=== PATIENT | female | born 1945 | race Caucasian/White ===

== ENCOUNTER 2019-07-01 06:55 | Inpatient (IN) | payer OTHER ==
[~2019-07-01 06:55] MED LIST: CEFAZOLIN 2 GM in DEXTROSE 5%-WATER - 50 ML IVPB ONE; CELECOXIB 200 MG CAPSULE PO ONE; PANTOPRAZOLE 40 MG TABLET (FP) PO ONE; TRANEXAMIC ACID 1000 MG/10 ML VIAL IVPUSH ONE; oxyCODONE HCL 10 MG SUSTAINED ACTING TABLET PO ONE
[2019-07-01 07:53] VITALS: BMI 30.4
[2019-07-01] MEDS ORDERED: MIDAZOLAM HCL 2 MG/2 ML SINGLE DOSE VIAL ONE (08:02)
[2019-07-01] MEDS ORDERED: BUPIVACAINE LIPOSOME/PF (EXPAREL) 266 MG/20 ML VIAL ONE (08:02)
[2019-07-01] MEDS ORDERED: SODIUM CHLORIDE 0.9% P/F 10 ML VIAL IJ ONE ×2 (08:02→08:36)
--- NOTE | 2019-07-01 08:14 | HP ---
Admitting History and Physical - Admission Chief Complaint: right knee osteoarthritis x years History of Present Illness: 74 year old female presents in regard to their right knee. Long-standing history of right knee osteoarthritis. Patient complains of pain, limited range of motion, difficulty ambulating, and difficulty with activities of daily living. Patient has failed conservative treatment options including PO medications, activity modification, injections, and exercise programs. At this point, patient like to proceed with surgical intervention, right total knee arthroplasty MAKOplasty. History Source: Patient - Past Medical History Cardiovascular: Yes: HTN ...: No ENT: Yes: Other (Hay fever) - Past Surgical History Additional Past Surgical History: See written history & physical - Advance Directives Advance Directives: Yes: Health Care Proxy - Smoking History Smoking history: Never smoked Have you smoked in the past 12 months: No - Alcohol/Substance Use Hx Alcohol Use: No (RARE) Home Medications - Allergies Allergies/Adverse Reactions: Allergies Allergy/AdvReac Type Severity Reaction Status Date / Time No Known Allergies Allergy Verified 07/01/19 07:50 - Home Medications Home Medications: Ambulatory Orders Aspirin [ASA -] 81 mg PO DAILY 06/17/19 Calcium Carb/Vitamin D3/Vit K1 [Calcium + D Soft Chewable Tab] 1 each PO DAILY 06/17/19 Lisinopril [Prinivil] 20 mg PO DAILY 06/17/19 Loratadine 10 mg PO DAILY PRN 06/17/19 [place]-3 Fatty Acids/Fish Oil [Fish Oil 1,000 mg Capsule] 1 each PO DAILY Review of Systems - Review of Systems Musculoskeletal: reports: Crepitus (right knee), Decreased ROM (right knee), Joint Pain (right knee), Joint Swelling (right knee) Physical Examination Vital Signs: Vital Signs Temperature 98.3 F 07/01/19 07:51 Pulse Rate 68 07/01/19 07:51 Respiratory Rate 16 07/01/19 07:51 Blood Pressure 121/79 07/01/19 07:51 O2 Sat by Pulse Oximetry (%) 96 07/01/19 08:01 Constitutional: Yes: Well Nourished, No Distress Eyes: Yes: Conjunctiva Clear HENT: Yes: Atraumatic Neck: Yes: Supple Cardiovascular: Yes: Regular Rate and Rhythm Respiratory: Yes: Regular Gastrointestinal: Yes: Soft ...Rectal Exam: Yes: Deferred Musculoskeletal: Yes: Joint Stiffness (right knee), Joint Swelling (right knee) Assessment/Plan 74 year old female presents in regard to their right knee. Long-standing history of right knee osteoarthritis. Patient complains of pain, limited range of motion, difficulty ambulating, and difficulty with activities of daily living. Patient has failed conservative treatment options including PO medications, activity modification, injections, and exercise programs. At this point, patient like to proceed with surgical intervention, right total knee arthroplasty MAKOplasty. Pros, cons, risks, benefits, and alternatives of a right total knee arthroplasty MAKOplasty were discussed with the patient at length. Patient confirms their understanding and consents to proceed with a right total knee arthroplasty MAKOplasty.
[2019-07-01] MEDS ORDERED: ceFAZolin SODIUM 1 GM VIAL ONE ×2 (08:16→08:36)
[2019-07-01] MEDS ORDERED: VANCOMYCIN 1,000 MG VIAL (RESTRICTED TO ID ONLY) ONE (08:16)
[2019-07-01] MEDS ORDERED: SUCCINYLCHOLINE CHLORIDE 200 MG/10 ML SYRINGE ONE (08:35)
[2019-07-01] MEDS ORDERED: BUPIVACAINE HCL/PF 0.5% (5MG/ML) 10 ML VIAL ONE (08:35)
[2019-07-01] MEDS ORDERED: PROPOFOL 20 ML ONE (08:35)
[2019-07-01] MEDS ORDERED: ONDANSETRON 4 MG/2 ML VIAL ONE ×2 (08:36→12:32)
[2019-07-01] MEDS ORDERED: PHENYLEPHRINE HCL 10 MG/1 ML SINGLE DOSE VIAL ONE (09:32)
[2019-07-01] MEDS ORDERED: ePHEDrine SULFATE 50 MG/1 ML AMPULE ONE (09:43)
[2019-07-01] MEDS ORDERED: GLYCOPYRROLATE 0.2 MG/1 ML VIAL ONE (10:44)
[2019-07-01] MEDS ORDERED: ESMOLOL HCL 100,000 MCG/10 ML VIAL ONE (10:52)
[2019-07-01] MEDS ORDERED: ACETAMINOPHEN INJECTION 100 ML IVPB ONE (12:31)
[2019-07-01] MEDS ORDERED: KETOROLAC TROMETHAMINE 30 MG/1 ML VIAL ONE (12:32)
[2019-07-01] MEDS ORDERED: traMADol HCL 50 MG TABLET ONE (12:32)
--- NOTE | 2019-07-01 12:56 | OP ---
Operative Note - Note: Operative Date: 07/01/19 Pre-Operative Diagnosis: Right knee OA Operation: Right BHARATI TKA Post-Operative Diagnosis: Same as Pre-op Surgeon: Olegario Claire Registered Representative: Morelia Gould Anesthesia: Spinal Estimated Blood Loss (mls): 250
[2019-07-01] MEDS ORDERED: MAG HYDROX/AL HYDROX/SIMETH 30 ML UNIT-DOSE CUP PO PRN (12:58)
[2019-07-01] MEDS ORDERED: MAGNESIUM HYDROX 2400MG/30ML ORAL SUSPENSION 30 ML CUP PO PRN (12:58)
[2019-07-01] MEDS ORDERED: ONDANSETRON 4 MG/2 ML VIAL IVPUSH PRN ×2 (12:58→13:35)
[2019-07-01] MEDS ORDERED: LACTATED RINGERS SOLUTION 1,000 ML IV SCH (13:00)
[2019-07-01] MEDS ORDERED: KETOROLAC TROMETHAMINE 30 MG/1 ML VIAL IVPUSH SCH (13:00)
[2019-07-01] MEDS ORDERED: ACETAMINOPHEN 1000 MG/100 ML VIAL (NON FORMULARY) IVPB ONE (13:00)
[2019-07-01] MEDS: traMADol HCL 50 MG TABLET PO SCH ×2 (13:18→18:03)
[2019-07-01] MEDS ORDERED: traMADol HCL 50 MG TABLET PO PRN (13:35)
[2019-07-01] MEDS ORDERED: PROMETHAZINE HCL 25 MG/1 ML VIAL IVPUSH PRN (13:35)
[2019-07-01] MEDS ORDERED: oxyCODONE HCL 5 MG TABLET PO PRN ×2 (13:35)
--- NOTE | 2019-07-01 13:51 | SPEC ---
DATE OF OPERATION: 07/01/2019 PREOPERATIVE DIAGNOSIS: Right knee osteoarthritis. POSTOPERATIVE DIAGNOSIS: Right knee osteoarthritis. PROCEDURE: Right total knee replacement. ATTENDING: Mackenzie Monteiro MD ELECTRICAL WIRER: JEWELS Eddy ANESTHESIA: Spinal plus sedation. ESTIMATED BLOOD LOSS: 250 mL COMPLICATIONS: None. DISPOSITION: The patient was transferred to the PACU in stable condition. IMPLANTS USED: Rolette Triathlon size 5 femoral component; Rolette Triathlon size 4 tibial component; a 13-mm, total-stabilized polyethylene component; a 32-mm patellar component. INDICATIONS: This is a 74-year-old female who presented to the office with severe right knee pain and notable valgus deformity. She was seen and examined by Dr. Monteiro and diagnosed with severe valgus osteoarthritis. Patient was initially treated nonoperatively with injections, medications, and physical therapy, but continued to have severe pain and ambulatory dysfunction. She was therefore indicated for a right total knee replacement with MAKOplasty robotic navigation. The risks, benefits and alternatives of the procedure were explained to the patient in great detail and she elected to proceed with surgery. DESCRIPTION OF PROCEDURE: On the day of surgery, the patient was taken to the operating room and placed on the OR table. Spinal anesthesia was administered by the anesthesiologist. The patient was then positioned supine on the table and all bony prominences were padded. The knee was then prepped and draped in the usual sterile fashion and intravenous antibiotics were given for infection prophylaxis. A surgical time-out was then performed with the team, and the patients identity, procedure, side, availability of implants, and the administration of antibiotics was confirmed. With the knee flexed, a midline incision was made and carried down through the subcutaneous fat to the underlying retinaculum. A medial parapatellar arthrotomy was performed. This was followed by a subperiosteal dissection of the tissue off the proximal, medial tibia. A portion of fat pad was removed from under the patellar tendon, and a small portion of fat was excised off the distal supracondylar femur. Electrocautery and an [employer] bipolar sealing device were used to achieve hemostasis. The knee was then flexed further and the anterior horn of the lateral meniscus was released from the midline. Next, the anterior and posterior cruciate ligaments were transected. Grade 4 changes were noted diffusely throughout the knee. Femoral and tibial checkpoints were then placed in the appropriate location using a mallet. Two parallel bicortical self-drilling pins were placed in the tibial diaphysis after making stab incisions and bluntly dissecting down to bone. Two pins were then placed in the distal supracondylar femur. The [employer] navigation arrays were then attached to both the femoral and tibial pins and the lower extremity was then registered to the robotic navigation device using various joint movements, as well as inputting several dozen reference points. The knee was then taken through a full range of motion with a corrective force applied. Alignment in varus/valgus as well as flexion/extension and soft tissue balance was measured in various positions. The navigation device showed a numerical and graphic representation of the soft tissue balance. The components were repositioned virtually using the software until optimal soft tissue balance was achieved on screen. Once this was accomplished, the final plan was saved and sent to the robot. Self-retaining retractors were then placed at the joint line for exposure and protection of the collateral ligaments. The robot was brought into the sterile field and registered with the navigation device. The robotic arm with attached oscillating saw blade was then used to perform femoral and tibial bone cuts as per the saved software plan. The femoral box cut was made using the appropriately-sized manual cutting guide. The knee was then irrigated. Trial components were placed and the knee was taken through a full range of motion to assess soft tissue balance and alignment. The range of motion was found to be excellent and the soft tissue balance was optimal and according to plan. The knee was then put into extension and the patella everted. The synovium around the patella was circumscribed with electrocautery. A caliper was used to measure the patellar thickness and a saw was then used to resect the patella at the chondro-osseous junction. The cut surface was then sized and drilled for the appropriate patellar button, with care taken to medialize it. A trial patella was then placed and the knee was again taken through a full range of motion. The knee was found to have both good balance and good patellar tracking. All of the components were removed except the tibial base plate. The appropriate instrumentation was used to drill and punch the proximal tibia for the keel of the final component. All bony surfaces were then cleaned with pulsatile lavage and dried. Bone cement was then prepared on the back table, and final components were cemented in place in the usual fashion. Extruded cement was removed. The polyethylene trial was placed, the knee was put into extension, and axial pressure was applied for compression while the cement hardened. The patellar button was similarly cemented into place. Once the cement had hardened, the knee was taken through a full range of motion to assess stability, balance, and patellar tracking. This was found to be optimal and the trial polyethylene was exchanged for the appropriately-sized real implant. The wound was then thoroughly irrigated with normal saline. A 3-minute dilute Betadine lavage was performed. The knee was again irrigated using a pulsatile lavage device. A periarticular injection was used to locally infiltrate the capsular tissues surrounding the implant and prosthesis. Then, No. 1 Polysorb and 0 V-Loc 180 barbed sutures were used to close the arthrotomy. Then, No. 1 Polysorb and 2-0 V-Loc 90 sutures were used in the subcutaneous tissues. Then, 4-0 undyed Vicryl and Dermabond skin adhesive was used to close the stab incisions made for the navigation pins. The skin was closed using both 3-0 V-Loc 90 suture in a running subcuticular fashion and Dermabond skin adhesive. Once this was completed, a sterile Aquacel dressing and compressive [place] wrap was applied. The patient was then awakened and taken to the PACU in stable condition. MACKENZIE MONTEIRO M.D. [id number]
[2019-07-01] MEDS: KETOROLAC TROMETHAMINE 15 MG/ML VIAL IVPUSH SCH ×2 (16:07→18:13)
[2019-07-01] MEDS: ACETAMINOPHEN 325 MG TABLET (FP) PO SCH (17:53)
[2019-07-01] MEDS: CEFAZOLIN 2 GM/D5W 2 GM/50 ML ML IVPB SCH (18:03)
[2019-07-01] MEDS ORDERED: DEXAMETHASONE SOD PHOSPHATE 10 MG/1 ML VIAL IVPB ONE (20:00)
[2019-07-01] MEDS: CELECOXIB 200 MG CAPSULE PO SCH (21:32)
[2019-07-01] MEDS: ASCORBIC ACID 500 MG TABLET (FP) PO SCH (21:32)
[2019-07-01] MEDS: GABAPENTIN 300 MG CAPSULE (FP) PO SCH (21:32)
[2019-07-01] MEDS: SENNOSIDES/DOCUSATE COMBO (SENNA PLUS) TABLET (UD) PO SCH (21:32)
[2019-07-02] MEDS: ACETAMINOPHEN 325 MG TABLET (FP) PO SCH ×4 (00:47→18:30)
[2019-07-02] MEDS: traMADol HCL 50 MG TABLET PO SCH ×4 (00:47→17:00)
[2019-07-02] MEDS: KETOROLAC TROMETHAMINE 15 MG/ML VIAL IVPUSH SCH (00:48)
[2019-07-02] MEDS: CEFAZOLIN 2 GM/D5W 2 GM/50 ML ML IVPB SCH (01:01)
[2019-07-02 08:07] LABS: HEMATOCRIT 30.7 % (32.4-45.2); MCHC 32.7 g/dl (32.0-36.0); MEAN CELL VOLUME 85.7 fl (80-96); MEAN PLT VOLUME 9.6 fl (7.5-11.1); PLATELET COUNT 152 K/MM3 (134-434); RBC 3.58 M/mm3 (3.60-5.2); RDW 12.8 % (11.6-15.6); WHITE BLOOD COUNT 5.9 K/mm3 (4.0-10.8)
[2019-07-02 08:30] LABS: CALCIUM 8.8 mg/dl (8.5-10); POTASSIUM 5.5 mmol/L (3.5-5.1)
[2019-07-02] MEDS: PANTOPRAZOLE 40 MG TABLET (FP) PO SCH (09:20)
[2019-07-02] MEDS: LISINOPRIL 20 MG TABLET (FP) PO SCH (09:20)
[2019-07-02] MEDS: GABAPENTIN 300 MG CAPSULE (FP) PO SCH ×2 (09:20→21:30)
[2019-07-02] MEDS: SENNOSIDES/DOCUSATE COMBO (SENNA PLUS) TABLET (UD) PO SCH ×2 (09:21→21:30)
[2019-07-02] MEDS: CELECOXIB 200 MG CAPSULE PO SCH ×2 (09:21→21:30)
[2019-07-02] MEDS: ASPIRIN 325 MG TABLET PO SCH (09:21)
[2019-07-02] MEDS: MULTIVITAMINS (DAILY MVI) TABLET (FP) PO SCH (09:23)
[2019-07-02] MEDS: ASCORBIC ACID 500 MG TABLET (FP) PO SCH ×2 (09:23→21:30)
--- NOTE | 2019-07-02 10:22 | PN ---
Progress Note (short form) - Note Progress Note: 74F s/p R TKR under spinal and PNB. Pain history overnight reviewed. Using PO analgesics with good effect. Participating in PT. No new c/o. Vital Signs Temp 98.0 F 07/02/19 06:00 Pulse 67 07/02/19 06:00 Resp 20 07/02/19 06:00 BP 113/46 L 07/02/19 06:00 Pulse Ox 99 07/02/19 07:22 Intake & Output 07/01/19 07/01/19 07/02/19 11:59 23:59 11:59 Intake Total 2700 1500 Output Total 300 Balance 2400 1500 Weight 177 lb 11.2 oz Intake: IV 2200 1300 Lactated Ringers Solution 1250 1,000 ml @ 125 mls/hr IV ASDIR [facility] Rx#: [id number] Ofirmev Injection - 100 50 ml @ 0 mls/hr IVPB .STK- [facility] Rx#:[id number] Oral 500 200 Output: Urine 300 Void 300 Other: Voiding Method Toilet Toilet # Unmeasured Voids Void 1 Bowel Movement No Height 5 ft 4 in Body Mass Index (BMI) 30.4 Weight Measurement Method Standing Scale Active Medications Acetaminophen (Tylenol -) 650 mg PO Q6H [facility] Stop: 07/04/19 18:29 Last Admin: 07/02/19 06:37 Dose: 650 mg Al Hydroxide/Mg Hydroxide (Mylanta Oral Suspension -) 30 ml PO Q4H PRN PRN Reason: DYSPEPSIA Ascorbic Acid (Vitamin C -) 500 mg PO BID [facility] Last Admin: 07/02/19 09:23 Dose: 500 mg Aspirin (Asa -) 325 mg PO DAILY@0800 [facility] Last Admin: 07/02/19 09:21 Dose: 325 mg Celecoxib (Celebrex -) 200 mg PO BID [facility] Last Admin: 07/02/19 09:21 Dose: 200 mg Gabapentin (Neurontin -) 300 mg PO BID [facility] Stop: 07/04/19 21:59 Last Admin: 07/02/19 09:20 Dose: 300 mg Lisinopril (Prinivil) 20 mg PO DAILY [facility] Last Admin: 07/02/19 09:20 Dose: 20 mg Magnesium Hydroxide (Milk Of Magnesia -) 30 ml PO PRN PRN PRN Reason: CONSTIPATION Multivitamins/Minerals/Vitamin C (Tab-A-Vit -) 1 tab PO DAILY [facility] Last Admin: 07/02/19 09:23 Dose: 1 tab Ondansetron HCl (Zofran Injection) 4 mg IVPUSH Q6H PRN PRN Reason: NAUSEA Oxycodone HCl (Roxicodone -) 5 mg PO Q3H PRN PRN Reason: PAIN LEVEL 4-6 Oxycodone HCl (Roxicodone -) 10 mg PO Q3H PRN PRN Reason: PAIN LEVEL 7-10 Pantoprazole Sodium (Protonix -) 40 mg PO DAILY [facility] Last Admin: 07/02/19 09:20 Dose: 40 mg Senna/Docusate Sodium (Pericolace -) 2 tablet PO BID [facility] Last Admin: 07/02/19 09:21 Dose: 2 tablet Tramadol HCl (Ultram -) 50 mg PO Q6H [facility] Last Admin: 07/02/19 06:37 Dose: 50 mg Tramadol HCl (Ultram -) 50 mg PO Q3H PRN PRN Reason: PAIN LEVEL 1-3 Last Admin: 07/02/19 09:27 Dose: 50 mg Sitting up, NAD RRR, CTAB Non-focal neuro exam - Block resolved, no anesthesia complications - Continue current pain regimen
[2019-07-03] MEDS: ACETAMINOPHEN 325 MG TABLET (FP) PO SCH ×4 (04:38→18:53)
[2019-07-03] MEDS: traMADol HCL 50 MG TABLET PO SCH ×4 (04:38→20:18)
[2019-07-03 08:44] LABS: HEMATOCRIT 28.6 % (32.4-45.2); HEMOGLOBIN 9.3 GM/dl (10.7-15.3); MCHC 32.6 g/dl (32.0-36.0); MEAN CELL VOLUME 85.9 fl (80-96); MEAN PLT VOLUME 9.4 fl (7.5-11.1); PLATELET COUNT 143 K/MM3 (134-434); RBC 3.32 M/mm3 (3.60-5.2); RDW 12.5 % (11.6-15.6); WHITE BLOOD COUNT 8.1 K/mm3 (4.0-10.8)
[2019-07-03] MEDS: ASPIRIN 325 MG TABLET PO SCH (09:00)
[2019-07-03] MEDS: SENNOSIDES/DOCUSATE COMBO (SENNA PLUS) TABLET (UD) PO SCH ×2 (10:00→21:37)
[2019-07-03] MEDS: CELECOXIB 200 MG CAPSULE PO SCH ×2 (10:00→21:38)
[2019-07-03] MEDS: GABAPENTIN 300 MG CAPSULE (FP) PO SCH ×2 (10:00→21:38)
[2019-07-03] MEDS: ASCORBIC ACID 500 MG TABLET (FP) PO SCH ×2 (10:00→21:38)
[2019-07-03] MEDS: LISINOPRIL 20 MG TABLET (FP) PO SCH (10:00)
[2019-07-03] MEDS: MULTIVITAMINS (DAILY MVI) TABLET (FP) PO SCH (10:00)
[2019-07-03] MEDS: PANTOPRAZOLE 40 MG TABLET (FP) PO SCH (10:00)
[2019-07-03] MEDS ORDERED: SODIUM CHLORIDE 500 ML IV STA (19:49)
[2019-07-03] MEDS ORDERED: LACTATED RINGERS SOLUTION 1,000 ML IV SCH (20:00)
--- NOTE | 2019-07-03 20:06 | PN ---
Progress Note (short form) - Note Progress Note: Pt seen and doing well. C/O n/v. Feels dehydrated. AVSS Laboratory Tests 07/02/19 07/02/19 07/03/19 07:25 07:25 07:55 WBC 5.9 8.1 Hgb 10.0 L 9.3 L Hct 30.7 L 28.6 L Plt Count 152 143 Sodium 137 Potassium 5.5 H Chloride 106 Carbon Dioxide 24 Anion Gap 7 L BUN 20.0 H Creatinine 1.0 Est GFR (CKD-EPI)AfAm 63.38 Est GFR (CKD-EPI)NonAf 54.68 Random Glucose 158 H Calcium 8.8 Selected Entries 07/03/19 07/03/19 14:00 18:00 Temperature 97.6 F 97.9 F Pulse Rate 60 64 Blood Pressure 99/50 L 129/57 L O2 Sat by Pulse 99 100 Oximetry (%) Oxygen Delivery Room Air Room Air Method Gen: NAD RLE: c/d/i, NVID A/P s/p R BHARATI TKA NS 500cc bolus then continue LR @ 125cc/hr until discharge tomorrow PT/OOB D/C home in AM
--- NOTE | 2019-07-03 20:11 | DS ---
Physical Examination Vital Signs: Vital Signs Temperature 97.9 F 07/03/19 18:00 Pulse Rate 64 07/03/19 18:00 Respiratory Rate 17 07/03/19 18:00 Blood Pressure 129/57 L 07/03/19 18:00 O2 Sat by Pulse Oximetry (%) 100 07/03/19 18:00 Labs: CBC, BMP 07/03/19 07:55 07/02/19 07:25 Discharge Summary Problems reviewed: Yes Reason For Visit: RIGHT KNEE OSTEOARTHRITIS Current Active Problems Osteoarthritis of right knee (Acute) Procedures: Principal: Right BHARATI TKA Hospital Course: Admitted for elective surgery. Procedure performed without complications. Pt received postoperative antibiotic prophylaxis and DVT ppx. Ambulated with physical therapy. Stable for discharge home with outpatient followup. Condition: Stable - Instructions Diet, Activity, Other Instructions: Dr. Claire - Knee Replacement Instructions Keep the Aquacel dressing on until removed by Dr. Claire - it is antibacterial and waterproof and you can shower with it on. Follow up with Dr. Claire FridayJuly 17 at 1:[address] [facility]. [address] [place] [address] Take one Aspirin 325mg daily for 6 weeks to prevent blood clots in your legs. Take one Pantoprazole 40mg daily for 6 weeks to protect against heartburn and ulcers. Take Cephalexin (antibiotic) 3x/day for 10 days to help prevent skin infection. Take Celebrex 200mg once daily for 30 days to reduce swelling and inflammation. Take a multivitamin, stool softener, and extra Vitamin C supplement daily. For pain: *Mild pain (1-3/10): Take 1 Tramadol tablet every 4 hours as needed. Moderate pain (4-6/10): Take 1 Tramadol tablet and 1 Percocet tablet every 4 hours as needed. Severe pain (7-10/10): Take 1 Tramadol tablet and 2 Percocet tablets every 4 hours as needed. Activity: You can put as much weight on the operative leg as you want. Right after you get home, there will be a physical therapist coming to your house to help you walk around and bend/straighten your knee. After your follow-up appointment, you will be sent for more intensive outpatient physical therapy which will include machines and equipment that the home therapist cannot bring to your house. Always use a walker or cane for balance and to prevent falls. Expect to see swelling/bruising from the operative site all the way down to your toes. Wear the compression stocking on the operative side during the day to minimize how much swelling there is in your foot/ankle. Don't wear the stocking at night. You don't have to wear a stocking on the other side. Disposition: [facility]/HOME HEALTH CARE - Home Medications Comprehensive Discharge Medication List: Ambulatory Orders Calcium Carb/Vitamin D3/Vit K1 [Calcium + D Soft Chewable Tab] 1 each PO DAILY 06/17/19 Lisinopril [Prinivil] 20 mg PO DAILY 06/17/19 Loratadine 10 mg PO DAILY PRN 06/17/19 [place]-3 Fatty Acids/Fish Oil [Fish Oil 1,000 mg Capsule] 1 each PO DAILY Ascorbic Acid [Vitamin C -] 500 mg PO BID tablet 07/03/19 Aspirin [ASA -] 325 mg PO DAILY@0800 tablet 07/03/19 Celecoxib [CeleBREX -] 200 mg PO DAILY #30 capsule 07/03/19 Cephalexin Monohydrate [Keflex -] 500 mg PO TID #30 capsule 07/03/19 Multivitamins [Multivit ([facility] Formulary)] 1 tab PO DAILY tab 07/03/19 Oxycodone HCl/Acetaminophen [Percocet 5-325 mg Tablet] 1 - 2 tab PO Q4H PRN #60 tablet MDD 10 07/03/19 Pantoprazole Sodium [Protonix -] 40 mg PO DAILY #40 tablet.ec 07/03/19 Sennosides/Docusate Sodium [Pericolace -] 2 tablet PO BID tablet 07/03/19 traMADol HCL [Ultram -] 50 mg PO Q4H PRN #42 tablet MDD 6 07/03/19
[2019-07-04] MEDS: ACETAMINOPHEN 325 MG TABLET (FP) PO SCH ×2 (00:17→07:04)
[2019-07-04] MEDS: traMADol HCL 50 MG TABLET PO SCH ×2 (01:00→07:05)
[2019-07-04 05:49] VITALS: BP 130/58; PULSE 80; TEMP 97.9
--- NOTE | 2019-07-06 17:11 | PATH ---
Surgical Pathology Report Patient Name: OPHELIA ROJAS Med. Rec. #: [id number] /Age/Gender: 1945 (Age: 74) / F Account: [id number] Location: [facility] MED-SURG Taken: 07/01/2019 Received: 07/01/2019 Reported: 07/06/2019 Physicians: Olegario Claire M.D. Specimen(s) Received RIGHT KNEE BONES Clinical History Right knee osteoarthritis Final Diagnosis BONES, KNEE, RIGHT, TOTAL KNEE REPLACEMENT MAKOPLASTY: BONE WITH REACTIVE CHANGES AND DEGENERATIVE JOINT DISEASE. BENIGN FIBROCONNECTIVE TISSUE. Electronically Signed Telma Gonzalez M.D. Gross Description Received in formalin labeled "right knee bones" is an 11.0 x 9.5 x 1.8 cm aggregate of multiple portions of bone and soft tissue. The tibial plateau measures 7.5 x 4.5 x 1.2 cm. There is a 1.7 cm in greatest dimension area of eburnation present. The remaining articular surfaces are rock-yellow and focally granular. The underlying trabecular bone is yellow and hard. Development Mgr sections are submitted in one cassette, following decalcification. /07/05/2019 [facility]
== END 2019-07-04 08:00 | disposition home health service (06) | DRG 470 ==
LOC: FM/S 06:55
PROVIDERS: ADMIT Student in an Organized Health Care Education/Training Program; ATTEND Student in an Organized Health Care Education/Training Program
PROC: 8E0Y0CZ Robotic Assisted Procedure of Lower Extremity, Open Approach (ICD-10-PCS; 2019-07-01)
PROC: 0SRC0J9 Replacement of Right Knee Joint with Synthetic Substitute, Cemented, Open Approach (ICD-10-PCS; principal; 2019-07-01 09:51)
DX: M17.11 Unilateral primary osteoarthritis, right knee (principal); I10 Essential (primary) hypertension
CPT/HCPCS: 36415; 73560-TC-RT-FY; 80048; 85027; 88305-TC; 88311-TC; 94760; 97116-GP; 97163-GP; J0131; J1100